=== PATIENT | male | born 1970 | race African-American/Black ===

== ENCOUNTER 2019-09-26 14:30 | Emergency (ER) | payer SELFPAY ==
[~2019-09-26] VITALS: Ht 190.5 cm; Wt 85.3 kg
[2019-09-26 14:37] VITALS: BP 127/77
[2019-09-26 14:58] VITALS: BP 127/77
== END 2019-09-26 15:02 | disposition home or self-care (01) ==
LOC: MED 14:30
DX: T16.1XXA Foreign body in right ear, initial encounter (principal); X58.XXXA Exposure to other specified factors, initial encounter
CPT/HCPCS: 69200; 96361; 96374; 99284